=== PATIENT | male | born 1955 | race Caucasian/White ===

== ENCOUNTER 2016-12-01 10:54 | Emergency (ER) | payer MEDICAID ==
[~2016-12-01] VITALS: Ht 182.9 cm; Wt 79.0 kg
[2016-12-01 10:56] VITALS: BP 148/100
[2016-12-01] MEDS ORDERED: OXYcodone/APAP 5/325MG TABLET PO ONE (12:00)
[2016-12-01] MEDS ORDERED: IBUPROFEN 200 MG TABLET PO ONE (12:00)
[2016-12-01] MEDS ORDERED: IBUPROFEN 200 MG TABLET ONE (12:19)
[2016-12-01] MEDS ORDERED: OXYcodone/APAP 5/325MG TABLET ONE (12:19)
== END 2016-12-01 13:20 | disposition home or self-care (01) ==
LOC: ED 13:14
DX: M54.5 Low back pain (principal); R55 Syncope and collapse
CPT/HCPCS: 72110; 99284

== ENCOUNTER 2018-11-18 15:26 | Emergency (ER) | payer MEDICAID ==
[~2018-11-18] VITALS: Ht 182.9 cm; Wt 75.0 kg
--- NOTE | 2018-11-18 15:49 | NUR ---
63 YR OLD MALE ARRIVED VIA EMS, PER REPORT PT WALKING AROUND, SOB, LEGS COLLAPSD, BECAME DIZZY AND "FELT LIKE I LOSS CONSCIOUS IN MY BRAIN" DECREASED WATER INTAKE. PT FOUND TO BE IN AFIB, RATE OF 160'S, PT GIVEN 600MLS NS, CONVERTED TO ST. PT GIVEN ADDITIONAL 400MLS NS. PT WITH 18G IN LAC. PT PLACED ON MONITORS, AUTO BP AND PULSE OX. PT HAD BEEN SOBER FOR 4 YRS. HAS BEEN DRINKING OFF AND ON FOR THE LAST MONTH. THURSDAY LAST ETOH DRINK. LAB AT BEDSIDE FOR BLOOD DRAW.
--- NOTE | 2018-11-18 15:53 | NUR ---
DR CASTILLO RETURNED TO ROOM. PT TO BE GIVEN FLUID BOLUS, HOLD CARDIZEM, R/T CURRENTLY ST PER MONITOR.
[2018-11-18] MEDS ORDERED: SODIUM CHLORIDE 0.9% 1,000ML IVBOLUS ONE (16:00)
[2018-11-18] MEDS ORDERED: LORazepam 2 MG/ML, 1ML IVPush ONE (16:00)
[2018-11-18] MEDS ORDERED: DILTIAZEM 5 MG/ML, 5ML IV ONE (16:00)
[2018-11-18] MEDS ORDERED: LORazepam 2 MG/ML, 1ML ONE (16:01)
[2018-11-18 16:05] LABS: BASOPHILS # (AUTO) 0.02 x10^3/uL (0-0.1); BASOPHILS % (AUTO) 0 % (0-1); EOSINOPHILS # (AUTO) 0.01 x10^3/uL (0-0.4); EOSINOPHILS % (AUTO) 0 % (1-7); LYMPHOCYTES # (AUTO) 0.47 x10^3/uL (1-3.4); LYMPHOCYTES % (AUTO) 4 % (22-44); MD NO; MEAN CORPUSCULAR HEMOGLOBIN 29.4 pg (27.5-34.5); MEAN CORPUSCULAR VOLUME 89.2 fL (81-97); MEAN PLATELET VOLUME 7.8 fL (7.4-10.4); MONOCYTES % (AUTO) 4 % (2-9); NEUTROPHILS # (AUTO) 9.97 x10^3/uL (1.8-6.8); NEUTROPHILS % (AUTO) 92 % (42-75); PLATELET COUNT 152 x10^3/uL (130-400); RED BLOOD COUNT 4.89 x10^6/uL (4.38-5.82)
[2018-11-18 16:16] LABS: ALANINE AMINOTRANSFERASE 44 U/L (12-78); ALBUMIN 3.8 g/dL (3.4-5.0); ANION GAP 11 mmol/L (5-15); CALCIUM 8.2 mg/dL (8.5-10.1); CHLORIDE 101 mmol/L (98-107)
[2018-11-18 16:17] LABS: INTERNATIONAL NORMALIZED RATIO 1.14 (0.93-1.1); PROTHROMBIN TIME 11.9 Seconds (9.6-11.5)
[2018-11-18 16:19] LABS: ALKALINE PHOSPHATASE 125 U/L (45-117); BILIRUBIN,TOTAL 1.3 mg/dL (0.2-1.0); CREATININE 1.36 mg/dL (0.7-1.3); TOTAL PROTEIN 6.5 g/dL (6.4-8.2)
--- NOTE | 2018-11-18 16:36 | NUR ---
PT DOZING INTERMITTENTLY, AROUSES TO NAME. SR PER MONITOR. AUTO BP AND PULSE OX IN PLACE. PT CONT TO DENY PAIN/SOB. IV INFUSING WITHOUT REDNESS/SWELLING. NO NEEDS EXPRESSED AT THIS TIME. WAITING FOR FURTHER DISPOSITION.
[2018-11-18 16:37] VITALS: BP 101/71
--- NOTE | 2018-11-18 16:51 | NUR ---
DR CASTILLO AT BEDSIDE TO RE-EVAL PT
--- NOTE | 2018-11-18 17:27 | NUR ---
Patient/Caregiver given discharge instructions and they have confirmed that they understand the instructions. Patient ambulatory with steady gait. PT VERBALIZD HE WILL CALL A [facility] FOR A SAFE DC.
== END 2018-11-18 17:33 | disposition home or self-care (01) ==
LOC: ED 17:27
DX: I48.0 Paroxysmal atrial fibrillation (principal); N28.9 Disorder of kidney and ureter, unspecified; F10.239 Alcohol dependence with withdrawal, unspecified; E86.9 Volume depletion, unspecified
CPT/HCPCS: 36415; 80053; 85025; 85610; 85730; 93005; 96361; 96374; 99284; J2060; J7030